=== PATIENT | female | born 1975 | race Caucasian/White ===

== ENCOUNTER 2020-06-06 09:01 | Emergency (ER) | payer OTHER, MEDICAID ==
[~2020-06-06] VITALS: Ht 154.9 cm; Wt 56.2 kg
[2020-06-06 10:08] VITALS: Ht 154.9 cm; Wt 56.2 kg
[2020-06-06 12:06] VITALS: BP 98/56
== END 2020-06-06 12:06 | disposition home or self-care (01) ==
LOC: ED 09:01
DX: S16.1XXA Strain of muscle, fascia and tendon at neck level, initial encounter (principal); S29.011A Strain of muscle and tendon of front wall of thorax, initial encounter; S80.11XA Contusion of right lower leg, initial encounter; V43.52XA Car driver injured in collision with other type car in traffic accident, initial encounter; Y93.I9 Activity, other involving external motion; Y92.413 State road as the place of occurrence of the external cause; Y99.8 Other external cause status
CPT/HCPCS: J1885; J2800; Q0092